=== PATIENT | female | born 1990 | race Hispanic/Latino ===

== ENCOUNTER 2019-05-10 10:54 | Emergency (ER) | payer SELFPAY ==
[2019-05-10 12:05] VITALS: BP 110/67
--- NOTE | 2019-05-10 12:11 | Event Note ---
ED Screening Note ED Screening Note: pt states she feels congestion, dry cough that began two days ago pt has a hx of anxiety, states she has not taken her medication in awhile states she had a sinus infection, and took course of amoxicillin no fever, no productive cough PCP: darcy rodrigues, has an appt on may 19 no pmhx no allergies to meds will d/c from triage
--- NOTE | 2019-05-10 12:12 | Emergency Department Report ---
- General Chief Complaint: Upper Respiratory Infection Stated Complaint: CHEST PAIN/VIVIANE/SOB Time Seen by Provider: 05/10/19 12:01 Source: patient Mode of arrival: Ambulatory Limitations: No Limitations - History of Present Illness Initial Comments: pt is a 28 yo female who presents to the ED stating she feels congestion, dry cough that began two days ago. she states she has a post nasal drip, states that when her nose is very congested it makes it difficult to breathe out of her nose. she states she had a sinus infection previously, and took course of amoxicillin. she denies any fever, no productive cough. pt has a hx of anxiety, states she has not taken her medication in awhile, but still does have her medication at home. she denies any SI, HI, halluncinations. PCP: darcy rodrigues, has an appt on may 19. no pmhx, no allergies to meds. - Related Data Allergies Allergy/AdvReac Type Severity Reaction Status Date / Time shellfish derived Allergy Anaphylaxis Verified 05/10/19 10:58 ED Review of Systems ROS: Stated complaint: CHEST PAIN/VIVIANE/SOB Other details as noted in HPI Comment: All other systems reviewed and negative ED Past Medical Hx - Past Medical History Previous Medical History?: No - Surgical History Past Surgical History?: Yes Hx Breast Surgery: Yes Additional Surgical History: LEEP procedure - Social History Smoking Status: Never Smoker Substance Use Type: None ED Physical Exam - General Limitations: No Limitations General appearance: alert, in no apparent distress - Head Head exam: Present: atraumatic, normocephalic - Eye Eye exam: Present: normal appearance, PERRL, EOMI. Absent: scleral icterus, conjunctival injection, nystagmus, periorbital swelling, periorbital tenderness - ENT ENT exam: Present: normal orophraynx, mucous membranes moist, TM's normal bilaterally, normal external ear exam, other (pale boggy turbinates, small amount of cerumen in bl ears, TMs appear normal, no sinus TTP) - Respiratory Respiratory exam: Present: normal lung sounds bilaterally. Absent: respiratory distress, wheezes, rales, rhonchi, stridor, chest wall tenderness, accessory muscle use, decreased breath sounds, prolonged expiratory - Cardiovascular Cardiovascular Exam: Present: regular rate, normal rhythm, normal heart sounds. Absent: systolic murmur, diastolic murmur, rubs, gallop - Neurological Exam Neurological exam: Present: alert, oriented X3 - Psychiatric Psychiatric exam: Present: normal affect, normal mood - Skin Skin exam: Present: warm, dry, intact ED Course Vital Signs 05/10/19 12:01 Temperature 97.9 F Pulse Rate 75 Respiratory 16 Rate Blood Pressure 110/67 O2 Sat by Pulse 98 Oximetry ED Medical Decision Making - Medical Decision Making pt is a 28 yo female who presents to the ED stating she feels congestion, dry cough that began two days ago. she states she has a post nasal drip, states that when her nose is very congested it makes it difficult to breathe out of her nose. she states she had a sinus infection previously, and took course of amoxicillin. she denies any fever, no productive cough. pt has a hx of anxiety, states she has not taken her medication in awhile, but still does have her medication at home. she denies any SI, HI, halluncinations. PCP: [facility], has an appt on may 19. no pmhx, no allergies to meds. vitals are normal. no tachycardia, normal oxygen sauturation, afebrile. on exam: pale boggy turbinates, small amount of cerumen in bl ears, TMs appear normal, no sinus TTP, normal breath sounds BL, no w/r/r, normal heart sounds. examination consistent with allergic rhinitis. advised pt to please take zyrtec or claritin over the counter. use flonase nasal spray over the counter. drink warm tea. may use a humidifier. follow up with a primary care doctor in the next 3-5 days. return to the emergency room for any new or worsening symptoms. Critical care attestation.: If time is entered above; I have spent that time in minutes in the direct care of this critically ill patient, excluding procedure time. ED Disposition Clinical Impression: Allergic rhinitis Qualifiers: Allergic rhinitis trigger: unspecified Allergic rhinitis seasonality: unspecified Qualified Code(s): J30.9 - Allergic rhinitis, unspecified Allergies Qualifiers: Encounter type: initial encounter Qualified Code(s): T78.40XA - Allergy, unspecified, initial encounter Disposition: MED SCREENING EXAM-LEFT Is pt being admited?: No Does the pt Need Aspirin: No Condition: Stable Instructions: Allergic Rhinitis (ED) Additional Instructions: please take zyrtec or claritin over the counter. use flonase nasal spray over the counter. drink warm tea. may use a humidifier. follow up with a primary care doctor in the next 3-5 days. return to the emergency room for any new or worsening symptoms. [facility] [place] [Referring] - 3-5 Days Forms: Work/School Release Form(ED) Time of Disposition: 12:15 Print Language: GREENLANDIC
== END 2019-05-10 12:15 | disposition left against medical advice (07) ==
LOC: ED 10:54
DX: T78.40XA Allergy, unspecified, initial encounter (principal); J30.9 Allergic rhinitis, unspecified; Z91.013 Allergy to seafood; X58.XXXA Exposure to other specified factors, initial encounter
CPT/HCPCS: 99281